=== PATIENT | male | born 1945 | race Caucasian/White ===

== ENCOUNTER → 2017-07-18 | Outpatient (CLI) | payer MEDICARE ==
[~2017-07-18] MED LIST: ASPI-516 CHEW; ATOR80TA45 PO; MELO15TA20 PO; NITR1SUB3 SL; ROBA500T PO; UMEC1INH INH; VENTAER INH
--- NOTE | 2017-07-18 09:42 | RADRPT ---
EXAM DATE/TIME: 07/18/2017 09:35 [facility] COMPARISON: CHEST PA & LAT, March 17, 2015, 14:36. INDICATIONS : Evaluate for Pnemonia, pneumothorax, and communicable disease. Pre-op right knee. MEDICAL HISTORY : None. SURGICAL HISTORY : None. ENCOUNTER: Initial ACUITY: 1 day PAIN SCORE: 0/10 LOCATION: Bilateral chest FINDINGS: PA and lateral views of the chest demonstrate the lungs to be symmetrically mildly hyperaerated witho ut evidence of mass, infiltrate or effusion. Stable calcified granuloma upper left lobe measuring 6 mm, unchanged from 2015. The cardiomediastinal contours are unremarkable. Osseous structures are in tact. Anterior plate in the lower cervical region. CONCLUSION: No acute findings. Stable hyperaeration of the lungs and left lung granuloma. Dandre Mancia MD on July 18, 2017 at 9:38 Board Certified Radiologist. This report was verified electronically.
[2017-07-18 09:50] LABS: HEMATOCRIT 42.2 % (39.0-51.0); HEMOGLOBIN 14.6 GM/DL (13.0-17.0); MEAN CELL VOLUME 91.8 FL (80.0-100.0); MEAN CORPUSCULAR HEMOGLOBIN 31.7 PG (27.0-34.0); MEAN CORPUSCULAR HGB CONC 34.5 % (32.0-36.0); MEAN PLATELET VOLUME 6.9 FL (7.0-11.0); PLATELET COUNT 441 TH/MM3 (150-450); RED CELL DISTRIBUTION WIDTH 13.7 % (11.6-17.2); WHITE BLOOD COUNT 8.9 TH/MM3 (4.0-11.0)
[2017-07-18 09:59] LABS: PROTHROMBIN TIME - PATIENT 10.3 SEC (9.8-11.6)
[2017-07-18 10:10] LABS: ALBUMIN 3.7 GM/DL (3.4-5.0); AST (GOT) 10 U/L (15-37); BICARBONATE 30.4 MEQ/L (21.0-32.0); BLOOD UREA NITROGEN 11 MG/DL (7-18); CALCIUM 9.5 MG/DL (8.5-10.1); CHLORIDE 102 MEQ/L (98-107); CREATININE 1.17 MG/DL (0.60-1.30); GLOMERULAR FILTRATION RATE 61 ML/MIN (>89); GLUCOSE,FASTING 99 MG/DL (74-99); SODIUM (NA) 138 MEQ/L (136-145)
[2017-07-18 10:11] LABS: ALT (GPT) 13 U/L (12-78)
[2017-07-18 10:14] LABS: ALKALINE PHOSPHATASE 157 U/L (45-117); TOTAL BILIRUBIN ADULT 0.6 MG/DL (0.2-1.0); TOTAL PROTEIN 7.5 GM/DL (6.4-8.2)
[2017-07-18 10:50] LABS: BACTERIA, URINE RARE /hpf; BILIRUBIN, URINE NEG (NEG); BLOOD, URINE NEG (NEG); GLUCOSE,URINE NEG (NEG); KETONE, URINE NEG (NEG); MUCUS URINE FEW /lpf (OCC); NITRITE,URINE NEG (NEG); PH, URINE 5.5 (5.0-8.5); SQUAMOUS EPITHELIAL CELL URINE <1 /hpf (0-5); URINE COLOR YELLOW (YELLW/STRAW); URINE LEUKOCYTE ESTERASE SMALL (NEG)
== END ==
LOC: CPRE 08:27
PROVIDERS: ATTEND Surgery
DX: Z01.812 Encounter for preprocedural laboratory examination (principal); Z01.811 Encounter for preprocedural respiratory examination; M79.609 Pain in unspecified limb
CPT/HCPCS: 71046; 80053; 81001; 85027; 85610; 85730

== ENCOUNTER → 2017-07-24 | Day surgery (SDC) | payer MEDICARE ==
--- NOTE | 2017-07-18 18:03 | MH ---
cc: Vicki Singh MD DATE OF ADMISSION: 07/24/2017 ADMITTING DIAGNOSIS: Torn medial meniscus, left knee, now for arthroscopy, left knee. HISTORY OF PRESENT ILLNESS: A pleasant 71-year-old male who is being admitted today for arthroscopy of left knee due to a torn medial meniscus as diagnosed by MRI. PAST MEDICAL HISTORY: The patient has a history of chronic kidney disease, stage II, heart disease and arthritis. PAST SURGICAL HISTORY: Coronary artery bypass x 2 and spinal surgery on his neck. CURRENT MEDICATIONS: Aspirin, atorvastatin, nitroglycerin, Mobic, which stopped before surgery, and Ventolin. REVIEW OF SYSTEMS: Noncontributory. FAMILY HISTORY: Noncontributory. SOCIAL HISTORY: He does smoke cigarettes, has been advised not to, and he does not drink. ALLERGIES: VICODIN AND DARVOCET. PHYSICAL EXAMINATION: GENERAL: We find a 71-year-old male, well developed, well nourished, oriented x 3, complaining of pain in his left knee. VITAL SIGNS: Blood pressure 110/68, pulse 77 and regular, respirations 18, temperature 97.8, pulse oximetry 96% on room air. HEENT: Eyes PERRL. EOMI. Ears, nose, mouth clear. NECK: Supple. LUNGS: Clear. HEART: Regular rate. ABDOMEN: Soft, positive bowel sounds, nontender. EXTREMITIES: Reveal his left knee to be tender over the medial joint surface. IMPRESSION: Torn medial meniscus, left knee. PLAN: Admission for arthroscopy, left knee, today. The patient given prescription for postoperative pain control in the office. Vicki Singh MD JRFritz/KARISSA , 05:44 PM , 06:03 PM
[~2017-07-24] VITALS: Ht 170.2 cm; Wt 60.6 kg
[~2017-07-24] MED LIST changes: +BUPIVACAINE HCL PF 0.25% 30 ML VIAL ONE; +CHLORHEXIDINE GLUCONATE 2 % 1 PACK (2 CLOTHS) TOPICAL PRN; +CHLORHEXIDINE GLUCONATE 4% SOLN 120 ML BTL TOPICAL SCH; +DO NOT ADM ANY ANTICOAGULANT DRUGS PRN; +INSULIN HUMAN REGULAR 1,000 UNITS/10 ML VIAL SQ PRN; +LACTATED RINGER'S 1000 ML IV PRN; +LIDOCAINE HCL 1% PF 5 ML SYRINGE OTHER ONE; +MEPERIDINE HCL 50 MG/ML VIAL IM PRN; +METOPROLOL TARTRATE 25 MG TAB PO PRN; +ONDANSETRON ODT 4 MG TAB PO PRN; +POVIDONE IODINE 5% (ANTISEPSIS KIT) 4 APPLICATIONS EACH NARE PRN; +PROPOFOL 200 MG/20 ML AMP IV ONE; +SODIUM CHLORID 0.9% 500 ML IV PRN; +ceFAZolin 2 GM PREMIX 50 ML IV SCH; +ePHEDrine/NS 25 MG/5 ML SYRINGE IV ONE; +oxyCODONE/ACETAMINOPHEN 5 MG/325 MG TAB PO PRN
--- NOTE | 2017-07-24 15:24 | HHI.PR ---
Immediate Post Op Note Procedure Date: July 24, 2017 Pre Op Diagnosis: Torn medial meniscus, left knee Post Op Diagnosis: Torn medial and lateral meniscus, left knee Surgeon: Vicki Singh MD Regional Truck Driver(s): Tosha MOULTON Procedure: Left knee arthroscopy with debridement of medial and lateral meniscus; excision of Plica Complications: none Specimen(s) removed: none Estimated blood loss: less than 5 cc (minimal) Anesthesia: General Drains: None IVF Urinary Output (mLs): 0 (no palcaio) Tourniquet time (min at mmHg) none Patient to: PACU Patient Condition: Good Implant/Devices: SEE IMPLANT LOG (if applicable) Date/Time of Procedure: SEE SURGICAL CARE RECORD Tosha Holbrook July 24, 2017 15:24
[2017-07-24 16:33] VITALS: BP 110/62; PULSE 69; RESP 16; TEMP 97.2; O2SAT 97
--- NOTE | 2017-07-25 08:57 | MP ---
cc: Vicki Singh MD DATE OF OPERATION: 07/24/2017 PREOPERATIVE DIAGNOSIS: Internal derangement, left knee. POSTOPERATIVE DIAGNOSIS: Torn medial and lateral menisci, plica and chondromalacia, left knee. SURGERY PERFORMED: Arthroscopy, excision of torn medial and lateral menisci, excision of plica and ArthroCare shaving of the weightbearing surface of medial and lateral condyles. SURGEON: Vicki Singh MD DIRECTOR DATA ANALYTICS: KENNEY Ingram ANESTHESIA: LMA. PROCEDURE The patient was brought to the operating room and placed on the operating room table in the supine position. After successful induction of general anesthesia, the patient's draped in the usual manner. The knee was then placed in a knee edwards and tightened. Arthroscopic examination was then performed by making a stab wound over the proximal superior and medial aspect of the patellofemoral joint for insertion of the inflow cannula and fluid, followed by stab wounds over the medial and lateral joint margins respectively for insertion of the arthroscope, shaver and probe. Arthroscopic examination was then performed which revealed the findings were torn medial and lateral menisci of the medial compartment, found to have a large tear of the medial meniscus, shaved smooth using the ArthroCare cutting smooth surface. Anterior cruciate found to be intact, but there was a plica anterior to this, which was removed. Lateral compartment also found to have an anterior lateral horn tear, shaved smoothed using the ArthroCare system. The weightbearing surface was also shaved using the ArthroCare system to afford a smooth surface, as well as the medial side. The patellofemoral joint found to be intact with grade II chondromalacia changes. The wound irrigated copiously with lactated Ringer's solution, excess fluid removed and 10 mL of 0.25% Marcaine plain inserted in the knee joint. Skin approximated with interrupted 3-0 nylon suture. Wet and then dry dressing applied to the wound followed by Xeroform gauze, sterile dressing, and thigh high Shiva wrap. No tourniquet utilized. ESTIMATED BLOOD LOSS: 5 mL. COUNTS: Sponge and suture count correct. The patient tolerated the procedure well and left the operating room in satisfactory condition. KENNEY Ingram was present during the entire procedure to include patient positioning and the procedure due to the medical necessity. The nurse practitioner, fire control assistant, was indicated in this case due to the surgical complexity of the case itself. During the surgical case, the surgical technician was working the back table while my surgical garment fitter [employer] PROGRAM DIRECTOR was directly assisting me. J. MD BISMARK Bunch/KARISSA , 03:07 PM , 03:35 PM
== END | disposition home or self-care (01) ==
LOC: HSDC 10:36
PROVIDERS: ATTEND Surgery
DX: S83.242A Other tear of medial meniscus, current injury, left knee, initial encounter (principal); S83.282A Other tear of lateral meniscus, current injury, left knee, initial encounter; M94.262 Chondromalacia, left knee; M67.52 Plica syndrome, left knee; I12.9 Hypertensive chronic kidney disease with stage 1 through stage 4 chronic kidney disease, or unspecified chronic kidney disease; N18.2 Chronic kidney disease, stage 2 (mild); I25.10 Atherosclerotic heart disease of native coronary artery without angina pectoris; Z95.1 Presence of aortocoronary bypass graft; Z79.82 Long term (current) use of aspirin
CPT/HCPCS: 01400; 29880; J0690; J3010